=== PATIENT | female | born 1980 | race Caucasian/White ===

== ENCOUNTER 2017-03-05 03:01 | Inpatient (IN) | payer BC ==
[2017-03-05] MEDS ORDERED: DEXTROSE 5%-LACTATED RINGERS 1,000 ML IV PRN (03:14)
[2017-03-05] MEDS ORDERED: PENICILLIN G POTASSIUM 5 MILLIONUNT in DEXTROSE 5 % IN WATER 100 ML IV ONE ×2 (03:14)
[2017-03-05] MEDS ORDERED: RINGER'S SOLUTION,LACTATED 1,000 ML IV ONE (03:14)
[2017-03-05] MEDS ORDERED: RINGER'S SOLUTION,LACTATED 1,000 ML IV PRN (03:14)
[2017-03-05] MEDS ORDERED: LIDOCAINE HCL 50 ML VIAL PERI PRN (03:14)
[2017-03-05] MEDS ORDERED: BUPIVACAINE HCL/0.9 % NACL/PF 250 ML EP PRN (03:16)
[2017-03-05] MEDS ORDERED: ONDANSETRON HCL/PF 2 MG/ML VIAL IV PRN (03:16)
[2017-03-05] MEDS ORDERED: NALOXONE HCL 1 MG/1 ML SYRG IV PRN (03:16)
[2017-03-05] MEDS ORDERED: fentaNYL CITRATE/PF 50 MCG/ML AMPUL IT SCH (03:30)
[2017-03-05] MEDS ORDERED: OXYTOCIN/DEXTROSE 5%-WATER 30 UNITS/500 ML BAG IV ONE ×2 (03:39→05:13)
--- NOTE | 2017-03-05 04:29 | OR ---
Anesthesia Procedure Note - Anesthesia Procedure Note Narrative: Vital Signs - Last Taken Temp 36.5 C 03/05/17 03:59 Pulse 105 H 03/05/17 03:59 Resp 22 H 03/05/17 03:59 BP 139/82 03/05/17 03:59 Pulse Ox 96 03/05/17 03:59 03/05/17 04:28 ANESTHESIA PROCEDURE NOTE Date of Procedure: 03/05/2017 Time of procedure: 10. Performed by: Jarocho Yang CRNA Acquisition Editor: None. Preprocedure diagnosis: Active labor. Post procedure diagnosis: Same. Procedure: Insertion of labor epidural. Indications: The patient is a 36 -year-old multigravida female in active labor requesting labor epidural for pain management. Findings: See below. Details of the procedure: The patient was placed in a sitting position. Back was prepped with DuraPrep. Patient was then draped in a sterile fashion. Lidocaine 1% was infiltrated to the skin and subcutaneous tissues at the level of the L3 4 interspace. The epidural space was identified using a 18-gauge Tuohy needle with uron-oh-vlrowswano technique. 20 mcg fentanyl was given intrathecally using a 27 ga. spinal needle. Epidural catheter was inserted without difficulty. Negative test dose was elicited using 5 mL of 1.5% preservative-free lidocaine plus epinephrine 1 200,000. The epidural catheter was then taped and secured in place. EBL: Minimal. Fluids: N/A. Specimen: N/A. Post procedure condition: The patient tolerated the procedure well. No complications were noted. Thank you for this consultation. Aleman CRNA
[2017-03-05] MEDS ORDERED: GLYCERIN/WITCH HAZEL LEAF 40 APPL BOX TP PRN (05:13)
[2017-03-05] MEDS ORDERED: oxyCODONE HCL/ACETAMINOPHEN 1 TAB TABLET PO PRN (05:13)
[2017-03-05] MEDS ORDERED: HYDROCORTISONE 30 APPL TUBE TP PRN (05:13)
[2017-03-05] MEDS ORDERED: SENNOSIDES 8.6 MG TABLET PO PRN (05:13)
[2017-03-05] MEDS ORDERED: BENZOCAINE/MENTHOL 81 SPRAY CAN TP PRN (05:13)
[2017-03-05] MEDS ORDERED: BISACODYL 10 MG SUPP.RECT RC PRN (05:13)
--- NOTE | 2017-03-05 05:22 | OR ---
Operative Report - Dictated Report Narrative: Spontaneous Vaginal Delivery Viable male with APGARS of 9 at 1 minute and 9 at 5 minutes. He delivered at 0456. Presentation was CLARISA. The anterior and posterior shoulder delivered without difficulty. A shoulder cord was noted and delivered through. The cord was being called after delivery around the shoulders and body. Spontaneous cry was noted. The patient was placed on the maternal abdomen tried stimulated and the cord was clamped and cut after approximately 60 seconds. Skin to skin was then started. Weight: 7 pounds 2.2 ounces or 3239 g Placenta was delivered spontaneously and intact. A first-degree midline vaginal laceration was repaired with 2-0 Vicryl. Estimated blood loss: 100 ml Mother and baby tolerated delivery well. History for Definition: * The number of deliveries resulting in a live the patient experienced prior to current hospitalization * The previous delivery of live twins or any live multiple gestation is considered one live event. *If primagravida or nulliparous is documented select zero for the number of previous live births. Live Events: 1
[2017-03-05] MEDS: IBUPROFEN 800 MG TABLET PO PRN ×2 (11:06→17:15)
[2017-03-05] MEDS: DOCUSATE SODIUM 100 MG CAPSULE PO SCH ×2 (11:07→20:32)
[2017-03-05] MEDS: oxyCODONE HCL/ACETAMINOPHEN 1 TAB TABLET PO PRN ×2 (17:16→21:27)
[2017-03-06] MEDS: IBUPROFEN 800 MG TABLET PO PRN ×2 (04:37→14:30)
--- NOTE | 2017-03-06 09:44 | PN ---
Progess Note - Interim Narrative: 03/06/17 09:44 progress note Subjective: The patient is doing well. She is ambulating, voiding, tolerating by mouth. She has minimal pain and moderate lochia. Objective: General: No acute distress Abdomen: Soft, nontender, fundus is firm just below the umbilicus Extremities: minimal edema, nontender to palpation Assessment and plan: day 1 Feeding: Breast Pain: Controlled with by mouth medication Routine care.
[2017-03-06] MEDS: DOCUSATE SODIUM 100 MG CAPSULE PO SCH (10:34)
[2017-03-06] MEDS: oxyCODONE HCL/ACETAMINOPHEN 1 TAB TABLET PO PRN (14:30)
[2017-03-06 16:23] VITALS: BP 137/82
== END 2017-03-06 18:00 | disposition home or self-care (01) | DRG 775 ==
LOC: OB 03:01
PROVIDERS: ADMIT Obstetrics & Gynecology Gynecologic Oncology; ATTEND Obstetrics & Gynecology Gynecologic Oncology
PROC: 10E0XZZ Delivery of Products of Conception, External Approach (ICD-10-PCS; principal; 2017-03-05)
PROC: 4A1HXCZ Monitoring of Products of Conception, Cardiac Rate, External Approach (ICD-10-PCS; 2017-03-05)
PROC: 0HQ9XZZ Repair Perineum Skin, External Approach (ICD-10-PCS; 2017-03-05)
PROC: 00HU33Z Insertion of Infusion Device into Spinal Canal, Percutaneous Approach (ICD-10-PCS; 2017-03-05)
DX: O99.824 Streptococcus B carrier state complicating childbirth (principal); O69.81X0 Labor and delivery complicated by cord around neck, without compression, not applicable or unspecified; O70.0 First degree perineal laceration during delivery; Z3A.40 40 weeks gestation of pregnancy; Z37.0 Single live birth; I25.2 Old myocardial infarction